=== PATIENT | male | born 1990 | race Caucasian/White ===

== ENCOUNTER 2016-12-24 11:35 | Emergency (ER) | payer OTHER ==
[~2016-12-24] VITALS: Ht 175.3 cm; Wt 85.9 kg
[~2016-12-24 11:35] MED LIST: COLACE100 MG PO; NORCO1 TA1 PO
[2016-12-24 12:36] LABS: BASOPHIL % 0.2 % (0-2); PLATELET COUNT 187 x10^3mcL (130-400); RED CELL DISTRIBUTION WIDTH 13.6 % (11.5-14.5)
[2016-12-24 12:58] LABS: CALCIUM 8.8 mg/dL (8.5-10.1); CARBON DIOXIDE 31.8 mmol/L (21-32); CHLORIDE SERUM 101 mmol/L (98-107); CREATININE SERUM 0.9 mg/dL (0.7-1.3); GFR1 > 60 mL/min; GLUCOSE SERUM 103 mg/dL (74-106); POTASSIUM SERUM 4.3 mmol/L (3.5-5.1); SODIUM SERUM 138 mmol/L (136-145)
[2016-12-24 13:02] LABS: ALBUMIN 4.1 g/dL (3.4-5.0); ALKALINE PHOSPHATASE 74 U/L (46-116); ALT/SGPT 31 U/L (16-63); AMYLASE 56 U/L (25-115); AST/SGOT 18 U/L (15-37); BILIRUBIN TOTAL 0.7 mg/dL (0.20-1.00); LIPASE 111 IU/L (73-393); TOTAL PROTEIN, SERUM 6.9 g/dL (6.4-8.2)
[2016-12-24 13:05] LABS: AMPHETAMINE QUAL UR NONE DETECTED (NEG <=1000)
[2016-12-24 16:17] VITALS: BP 110/82
== END 2016-12-24 16:17 | disposition home or self-care (01) ==
LOC: ED 11:35
PROVIDERS: Emergency Medicine
DX: R10.9 Unspecified abdominal pain (principal); R51 Headache; R11.2 Nausea with vomiting, unspecified; R07.9 Chest pain, unspecified
CPT/HCPCS: 83880; J1885; J2405; J3490; J7030; Q0092

== ENCOUNTER 2018-10-13 10:20 | Inpatient (IN) | payer OTHER ==
[~2018-10-13] VITALS: Ht 175.3 cm; Wt 92.1 kg
[2018-10-13 10:22] VITALS: Ht 175.3 cm; Wt 92.1 kg
[2018-10-13 11:08] LABS: microscopic required? NO
[2018-10-13 11:13] LABS: BASOPHIL % 0.6 % (0-2); PLATELET COUNT 225 x10^3mcL (130-400); RED CELL DISTRIBUTION WIDTH 13.3 % (11.5-14.5)
[2018-10-13 11:22] LABS: CALCIUM 8.6 mg/dL (8.5-10.1); CHLORIDE SERUM 103 mmol/L (98-107); CREATININE SERUM 0.9 mg/dL (0.7-1.3); GFR1 > 60 mL/min; GLUCOSE SERUM 102 mg/dL (74-106); SODIUM SERUM 139 mmol/L (136-145)
[2018-10-13 11:22] LABS: urine erythrocyte NEGATIVE (NEGATIVE)
[2018-10-13 11:27] LABS: ALKALINE PHOSPHATASE 80 U/L (46-116); ALT/SGPT 37 U/L (16-63); AST/SGOT 17 U/L (15-37); BILIRUBIN TOTAL 0.3 mg/dL (0.20-1.00)
[2018-10-13 14:57] VITALS: BP 113/63
[2018-10-13 17:30] VITALS: BP 115/63
[2018-10-14 05:08] VITALS: BP 96/54
[2018-10-14 06:55] LABS: CALCIUM 8.7 mg/dL (8.5-10.1); CARBON DIOXIDE 27.7 mmol/L (21-32); CHLORIDE SERUM 105 mmol/L (98-107); CREATININE SERUM 0.9 mg/dL (0.7-1.3); GFR1 > 60 mL/min; GLUCOSE SERUM 131 mg/dL (74-106); POTASSIUM SERUM 4.4 mmol/L (3.5-5.1); SODIUM SERUM 139 mmol/L (136-145)
[2018-10-14 07:05] LABS: PLATELET COUNT 224 x10^3mcL (130-400)
[2018-10-14 07:33] LABS: BASOPHIL % 0 % (0-2)
[2018-10-14 08:40] VITALS: BP 110/63
[2018-10-14 11:13] VITALS: BP 110/63
== END 2018-10-14 11:56 | disposition home or self-care (01) | DRG 228 ==
LOC: ED 10:20 → MU 13:12
PROVIDERS: Emergency Medicine; Surgery; ADMIT Internal Medicine Pulmonary Disease
PROC: 0WQF4ZZ Repair Abdominal Wall, Percutaneous Endoscopic Approach (ICD-10-PCS; principal; 2018-10-13 18:00)
DX: K42.0 Umbilical hernia with obstruction, without gangrene (principal); K43.6 Other and unspecified ventral hernia with obstruction, without gangrene
CPT/HCPCS: C1758; J0690; J1170; J1885; J2270; J2405; J3010; J3490; J7042; Q9966

== ENCOUNTER 2018-12-03 19:31 | Emergency (ER) | payer OTHER ==
[~2018-12-03] VITALS: Ht 175.3 cm; Wt 94.1 kg
[2018-12-03 19:37] VITALS: Ht 175.3 cm; Wt 94.1 kg
[2018-12-03 21:23] LABS: BASOPHIL % 0.5 % (0-2); PLATELET COUNT 260 x10^3mcL (130-400); RED CELL DISTRIBUTION WIDTH 13.7 % (11.5-14.5)
[2018-12-03 21:34] LABS: CALCIUM 9.4 mg/dL (8.5-10.1); CARBON DIOXIDE 32.9 mmol/L (21-32); CHLORIDE SERUM 105 mmol/L (98-107); CREATININE SERUM 0.9 mg/dL (0.7-1.3); GFR1 > 60 mL/min; GLUCOSE SERUM 92 mg/dL (74-106); POTASSIUM SERUM 4.2 mmol/L (3.5-5.1); SODIUM SERUM 144 mmol/L (136-145)
[2018-12-03 21:37] LABS: ALBUMIN 4.1 g/dL (3.4-5.0); ALKALINE PHOSPHATASE 78 U/L (46-116); ALT/SGPT 56 U/L (16-63); AST/SGOT 17 U/L (15-37); BILIRUBIN TOTAL 0.2 mg/dL (0.20-1.00); LIPASE 112 IU/L (73-393)
[2018-12-04 00:07] VITALS: BP 90/53
== END 2018-12-04 00:07 | disposition home or self-care (01) ==
LOC: ED 19:31
PROVIDERS: Emergency Medicine
DX: R10.32 Left lower quadrant pain (principal); R11.2 Nausea with vomiting, unspecified; F17.210 Nicotine dependence, cigarettes, uncomplicated; Z86.19 Personal history of other infectious and parasitic diseases
CPT/HCPCS: J2270; J2405; J7030